=== PATIENT | female | born 1975 | race Caucasian/White ===

== ENCOUNTER → 2017-02-23 | Outpatient (CLI) | payer BC | LOC: FIMAGING 15:28 | DX: Z12.31 Encounter for screening mammogram for malignant neoplasm of breast (principal) | CPT/HCPCS: G0202 ==

== ENCOUNTER → 2018-02-26 | Outpatient (CLI) | payer BC | LOC: FIMAGING 14:43 | PROVIDERS: ATTEND Family Medicine | DX: Z12.31 Encounter for screening mammogram for malignant neoplasm of breast (principal) ==

== ENCOUNTER 2019-01-19 23:02 | Emergency (ER) | payer BC ==
[2019-01-19 23:57] LABS: PLATELET COUNT 281 10^3/uL (150-400)
--- NOTE | 2019-01-20 00:01 | EDPHY ---
H & P Stated Complaint: high BP Time Seen by Provider: 01/19/19 23:25 HPI/ROS: HPI The patient presents with dizziness, sense of fogginess over the last several days. She checked her blood pressure tonight and it was 170/120 so came into the emergency department. She has had a cough for the last several days and has been taking a cough medicine, dextromethorphan. She has been taking her usual blood pressure medication and has not missed any doses. She has been exercising frequently as she is training for a triathlon. She denies any chest pain or shortness of breath. She has had hypertension since her 20s and previously took lisinopril as well as triamterene/HCTZ but was taken off lisinopril about 1 year ago.. REVIEW OF SYSTEMS 10 systems were reviewed and negative with the exception of the elements mentioned in the history of present illness. PMHx: Hypertension Soc Hx: Here with her PHYSICAL General Appearance: Alert, no distress Eyes: Pupils equal and round no pallor or injection ENT, Mouth: Mucous membranes moist Respiratory: There are no retractions, lungs are clear to auscultation Cardiovascular: Regular rate and rhythm Gastrointestinal: Abdomen is soft and non-tender, no masses, bowel sounds normal Neurological: A&O, moves all extremities Skin: Warm and dry, no rashes Musculoskeletal: Neck is supple non tender Extremities: symmetrical, full range of motion Psychiatric: Patient is oriented X 3, there is no agitation Source: Patient Exam Limitations: No limitations - Personal History LMP (Females 10-55): Irregular Current Tetanus/Diphtheria Vaccine: Yes Current Tetanus Diphtheria and Acellular Pertussis (TDAP): Yes - Medical/Surgical History Hx Asthma: No Hx Chronic Respiratory Disease: No Hx Diabetes: No Hx Cardiac Disease: No Hx Renal Disease: No Hx Cirrhosis: No Hx Alcoholism: No Hx HIV/AIDS: No Hx Splenectomy or Spleen Trauma: No Other PMH: HTN - Social History Smoking Status: Never smoked Constitutional: Initial Vital Signs Temperature (C) 36.8 C 01/19/19 23:05 Heart Rate 80 01/19/19 23:05 Respiratory Rate 16 01/19/19 23:05 Blood Pressure 162/105 H 01/19/19 23:05 O2 Sat (%) 97 01/19/19 23:05 O2 Delivery Mode Room Air Allergies/Adverse Reactions: No Known Allergies Allergy (Unverified 01/19/19 23:04) Home Medications: Medication Instructions Recorded Concha 28 Tablet 01/19/19 Triamterene/Hctz 37.5/25 01/19/19 Medical Decision Making - Diagnostics EKG Interpretation: EKG: Complete interpretation has been separately recorded in the [facility] archive. Summary impression: T-wave inversion in V3 Imaging Results: Chest x-ray two view shows no cardiomegaly, no infiltrate, no mediastinal widening, interpreted by me, radiology interpretation is pending. Imaging: I viewed and interpreted images myself Differential Diagnosis: 43-year-old female with longstanding history of hypertension on antihypertensive therapy with triamterene/HCTZ presents with dizziness and fogginess over the last several days without any other concerning symptoms. Checked her blood pressure tonight and it was quite elevated 170/120. She has had a cough for the last several days. Plan for basic labs, EKG, chest x-ray here. EKG, her kidney function, chest x-ray are all unremarkable. Patient's blood pressure improved on its own. EKG does show 1 flipped T-wave in V3, I do not have an old for comparison. She says she has had an EKG by her primary care doctor. If this is a new finding, she may benefit from stress test of some sort, however she can follow up with her primary care doctor about this as an outpatient. Her blood pressure readings improved without any intervention here. I have advised her that while I do not believe she is experiencing any signs of hypertensive emergency she should check her blood pressure daily for the next 1 week and if she continually has elevated readings, she should follow up with her primary care doctor to see if she should restart her lisinopril. She is happy with this plan. - Data Points Laboratory Results: Laboratory Results 01/19/19 23:15 01/19/19 23:15 01/20/19 01/19/19 01/19/19 01:06 23:15 23:15 WBC 9.68 10^3/uL H 10^3/uL (3.80-9.50) RBC 5.21 10^6/uL 10^6/uL (4.18-5.33) Hgb 15.0 g/dL g/dL (12.6-16.3) Hct 44.0 % % (38.0-47.0) MCV 84.5 fL fL (81.5-99.8) MCH 28.8 pg pg (27.9-34.1) MCHC 34.1 g/dL g/dL (32.4-36.7) RDW 13.0 % % (11.5-15.2) Plt Count 281 10^3/uL 10^3/uL (150-400) MPV 11.1 fL fL (8.7-11.7) Neut % (Auto) 57.2 % % (39.3-74.2) Lymph % (Auto) 34.3 % % (15.0-45.0) [place] % (Auto) 6.5 % % (4.5-13.0) Eos % (Auto) 1.3 % % (0.6-7.6) Baso % (Auto) 0.5 % % (0.3-1.7) Nucleat RBC Rel Count 0.0 % % (0.0-0.2) Absolute Neuts (auto) 5.53 10^3/uL 10^3/uL (1.70-6.50) Absolute Lymphs (auto) 3.32 10^3/uL H 10^3/uL (1.00-3.00) Absolute Monos (auto) 0.63 10^3/uL 10^3/uL (0.30-0.80) Absolute Eos (auto) 0.13 10^3/uL 10^3/uL (0.03-0.40) Absolute Basos (auto) 0.05 10^3/uL 10^3/uL (0.02-0.10) Absolute Nucleated RBC 0.00 10^3/uL 10^3/uL (0-0.01) Immature Gran % 0.2 % % (0.0-1.1) Immature Gran # 0.02 10^3/uL 10^3/uL (0.00-0.10) Sodium 138 mEq/L mEq/L (135-145) Potassium 3.7 mEq/L mEq/L (3.5-5.2) Chloride 105 mEq/L mEq/L (97-110) Carbon Dioxide 23 mEq/l mEq/l (22-31) Anion Gap 10 mEq/L mEq/L (6-14) BUN 21 mg/dL mg/dL (7-23) Creatinine 0.9 mg/dL mg/dL (0.6-1.0) Estimated GFR > 60 Glucose 106 mg/dL H mg/dL (70-100) Calcium 9.4 mg/dL mg/dL (8.5-10.4) POC Troponin I 0.00 ng/mL ng/mL (0.00-0.08) Point of Care Test Results: Chemistry 01/20/19 01:06 POC Troponin I 0.00 ng/mL ng/mL (0.00-0.08) Departure - Departure Disposition: Home, Routine, Self-Care Clinical Impression: Elevated blood pressure reading HTN (hypertension) Qualifiers: Hypertension type: essential hypertension Qualified Code(s): I10 - Essential ( primary) hypertension Condition: Good Instructions: Chronic Hypertension (ED) Additional Instructions: I recommend you check your blood pressure once daily at the same time every day for the next 1 week. If you continue to have elevated readings, I would like for you to follow up with your primary care doctor. Referrals: Kathrine Perez MD [Primary Care Provider] - As per Instructions
[2019-01-20 01:54] VITALS: BP 139/92
== END 2019-01-20 01:53 | disposition home or self-care (01) ==
DX: I10 Essential (primary) hypertension (principal)
CPT/HCPCS: 84484-ER